=== PATIENT | male | born 1985 | race Caucasian/White ===

== ENCOUNTER → 2023-01-08 | Outpatient (CLI) | payer SELFPAY ==
[~2023-01-08] MED LIST: AMOXICILLIN500 MG PO; CIPRO500 MG PO; DOXYCYCLINE100 M3 PO; LIDEX0.05% T; MYCELEX1% TP; PREDNICOT20 MG PO; PREDNISONE10 MG PO
== END | disposition home or self-care (01) ==
LOC: RAD 13:56
PROVIDERS: ATTEND Family Medicine
DX: Z02.1 Encounter for pre-employment examination (principal)